=== PATIENT | male | born 1955 | race Hispanic/Latino ===

== ENCOUNTER 2023-07-12 18:25 | Emergency (ER) | payer OTHER, MEDICARE ==
[~2023-07-12] VITALS: Ht 175.3 cm; Wt 77.1 kg
[~2023-07-12 18:25] MED LIST: LACT10SO5 PO
[2023-07-12] MEDS ORDERED: KETOROLAC 15MG/ML VIAL (15MG/ML) IM ONE (20:00)
[2023-07-12] MEDS ORDERED: LIDOCAINE 4% ADH..PATCH TP ONE (20:00)
[2023-07-12 22:49] VITALS: BP 128/74; PULSE 88; RESP 20; O2SAT 99
[2023-07-12] MEDS ORDERED: KETO10TA2 PO (22:52)
[2023-07-12] MEDS ORDERED: LIDOP TP (22:52)
== END 2023-07-12 23:00 | disposition home or self-care (01) ==
LOC: EDH 18:25
DX: M51.26 Other intervertebral disc displacement, lumbar region (principal); J02.8 Acute pharyngitis due to other specified organisms; Z98.890 Other specified postprocedural states
CPT/HCPCS: 99285; 72131; 87880; 96372; J1885

== ENCOUNTER 2025-06-01 13:51 | Emergency (ER) | payer MEDICARE, MEDICAID ==
[~2025-06-01] VITALS: Ht 177.8 cm; Wt 85.7 kg
[~2025-06-01 13:51] MED LIST changes: +KETO10TA2 PO; +LACT-441 PO; -LACT10SO5 PO; +LIDOP TP
--- NOTE | 2025-06-01 13:58 | ERN ---
ED Note History of Present Illness Stated Complaint: RT KNEE PAIN, FALL Chief Complaint: Knee Injury/Swelling Time Seen by MD: 13:53 Dictation: PATIENT IS A 69-YEAR-OLD MALE COMPLAINING OF RIGHT KNEE PAIN STATUS POST FALL OFF LADDER. HE HAS BEEN AMBULATORY SINCE THE FALL TODAY. HE DOES HAVE A HISTORY OF PRIOR TOTAL KNEE REPLACEMENT SAME WI. PAIN IS 7/10 HE HAS NOT TAKEN ANYTHING PRIOR TO ARRIVAL FOR PAIN. NO HIP PAIN NO SHORTENING OR ROTATION OF LEG. Allergies: Coded Allergies: No Known Allergies (Unverified Allergy, Unknown, 01/28/22) Home Meds Active Scripts Ibuprofen (Ibuprofen 800 mg Tab) 800 Mg Tab, 800 MG PO Q8H PRN for fever or pain, #30 TAB 0 Refills Prov:CORNELL SUTTON [employer] 06/01/25 Lidocaine (Lidoderm Patch 5%) 5 % Patch, 1 PATCH TP DAILY for 7 Days, #7 ADH.PATCH Prov:EVELIN MELVIN MD 07/12/23 Ketorolac Tromethamine (Ketorolac Tromethamine) 10 Mg Tablet, 10 MG PO QID for 7 Days, #28 TAB Prov:EVELIN MELVIN MD 07/12/23 Lactulose (Lactulose) 10 Gm/15 Ml Solution, 10 GM PO DAILY for 7 Days, #15 ML Prov:PIPER SÁNCHEZ MD 01/28/22 Past Medical History Past Medical History: Other Additional Past Medical Hx: SEASONAL ALLERGIES, CHRONIC BACK PAIN Surgical History: Unknown Surgical History Other: RT KNEE Social History: Negative RN Note Reviewed/Agreed w/PFSH: Yes Review of System Dictation CONSTITUTIONAL: NEGATIVE EXCEPT FOR HPI HEAD/FACE: NEGATIVE EXCEPT FOR HPI EENT: NEGATIVE EXCEPT FOR HPI RESPIRATORY: NEGATIVE EXCEPT FOR HPI GASTROINTESTINAL/ABDOMINAL: NEGATIVE EXCEPT FOR HPI GENITOURINARY: NEGATIVE EXCEPT FOR HPI MUSCULOSKELETAL: NEGATIVE EXCEPT FOR HPI RIGHT KNEE PAIN INTEGUMENTARY: NEGATIVE EXCEPT FOR HPI NEUROLOGICAL/PSYCH: NEGATIVE EXCEPT FOR HPI HEMATOLOGIC/LYMPHATIC: NEGATIVE EXCEPT FOR HPI ALL SYSTEMS NEGATIVE, EXCEPT NOTED ABOVE. 13 POINT REVIEW OF SYSTEMS ASSESSED AND ALL NEGATIVE EXCEPT FOR ABOVE. Initial Vital Sign VS Vital Signs Date Time Temp Pulse Resp B/P (MAP) Pulse Ox O2 Delivery O2 Flow Rate FiO2 06/01/25 13:53 98.8 67 16 133/82 99 Room Air 0 06/01/25 14:52 21 Physical Exam Dictation VITAL SIGNS REVIEWED GENERAL APPEARANCE: ALERT, ORIENTED X 3, MODERATE ACUTE DISTRESS, WELL DEVELOPED, NOURISHED. HEAD AND FACE: NON-TRAUMATIC. EYES: PERRL, PINK CONJUNCTIVAS, EYELID NO TRAUMA, ANTERIOR CHAMBER WITH ARCUS SENILIS. EARS: PINNAS INTACT AND NO SIGNS OF TRAUMA OR ERYTHEMA EAR CANALS CLEAR AND NO DISCHARGE TM NO ERYTHEMA NOSE: NO DISCHARGE, NO BLEEDING. OROPHARYNX: MOUTH NORMAL, TONGUE PINK, PHARYNX CLEAR,NO ERYTHEMA, TONSILS NO EXUDATES, NO ABSCESSES NOTED, MUCOUS MEMBRANE MOIST NECK: SUPPLE, NON-TENDER, NO THYROMEGALY, NO MASSES, NO JVD, NO BRUITS BREAST:DEFERRED CHEST:NO TENDERNESS, NO CREPITUS, NO PARADOXICAL MOVEMENT, NO RETRACTIONS LUNGS:CLEAR, WELL-VENTILATED, SYMMETRIC, NO RALES, NO WHEEZING, NO RHONCHI, NO STRIDOR, GOOD BREATH SOUNDS BILATERALLY HEART: REGULAR RATE, REGULAR RHYTHM, NO MURMUR, NO GALLOPS VASCULAR: NO PERIPHERAL EDEMA, ABDOMEN: SOFT, POSITIVE BOWEL SOUNDS, NONDISTENDED, NO GUARDING, NONTENDER, NO REBOUND, NO MASSES NO HEPATOMEGALY, NO SPLENOMEGALY, NO CARRASCO'S SIGN, NO HERNIAS. RECTAL: DEFERRED GENITAL: DEFERRED NEUROLOGICAL: NORMAL SPEECH, MOTOR FUNCTION INTACT, SENSORY FUNCTION INTACT MUSCULOSKELETAL: NECK NONTENDER, FULL RANGE OF MOTION, BACK NONTENDER, FULL RANGE OF MOTION, EXTREMITIES: RIGHT KNEE PAIN TENDERNESS WITH RANGE OF MOTION. SKIN: COLOR PINK, DRY, NO TURGOR, NO RASH, NO LACERATIONS, NO ABRASIONS, NO CONTUSIONS. LYMPHATIC: DEFERRED Results (Laboratory/Radiology) Laboratory/Radiology FINDINGS: BONES: No acute fracture or aggressive appearing osseous lesion. JOINTS: Cemented right total knee arthroplasty is in near anatomic alignment. No knee joint effusion. SOFT TISSUES: The soft tissues are unremarkable. IMPRESSION: No acute osseous pathology evident. /[place] [facility] Reviewed?: Yes ED Course ED Course Orders Procedure Category Date Status Time Knee 3vws Rt RAD 06/01/25 Resulted 13:56 Hydrocodone/Apap PHA 06/01/25 Complete 5/325 ([place] 5/325mg) 14:00 Current Medications Medications (Trade) Dose Ordered Sig/Farhan Route PRN Reason Start Time Stop Time Status Last Admin Dose Admin Acetaminophen/ Hydrocodone Bitart (NORco 5/325MG) 1 tab ONCE ONCE PO 06/01/25 14:00 06/01/25 14:01 DC 06/01/25 14:50 Vital Signs Date Time Temp Pulse Resp B/P (MAP) Pulse Ox O2 Delivery O2 Flow Rate FiO2 06/01/25 14:52 98.6 65 16 130/80 98 Room Air* 0 21 06/01/25 13:53 98.8 67 16 133/82 99 Room Air 0 1500/knee x-ray negative and arthroplasties in place Medical Decision Making MDM Medical decision-making based on empiric treatment for knee pain status post fall and knee x-ray X-ray done shows arthroplasty in place and intact Patient has hydrocodone at home and told to continue. He will be prescribed ibuprofen for mild pain DX & DISP Disposition: Discharge Departure Impression: Primary Impression: Contusion of right knee, initial encounter Additional Impressions: History of arthroplasty of right knee, Fall Condition: Stable Scripts Ibuprofen (Ibuprofen 800 mg Tab) 800 Mg Tab 800 MG PO Q8H PRN for fever or pain, #30 TAB 0 Refills Prov: CORNELL SUTTON NP 06/01/25 Additional Instructions: Follow-up with primary care provider in 1 to 2 days. Take medications as directed here in the emergency room. Okay to continue home medications unless otherwise discussed during your visit in the emergency room today. Return to your nearest emergency room if symptoms worsen or if there is no improvement. Call 911 if you need immediate assistance. Take Tylenol or Motrin [id number] as needed and if no contraindications are present. Increase oral hydration. A wound culture or urine culture was ordered here in the emergency room department please follow-up with primary care provider and advise them to get repeat ports from our facility. If you had any Herber wrap/splints that were applied here, please do not remove them until you see your primary care or specialty. Cool compresses to right knee three to 4 times a day. Activity and diet as t olerated. Continue your hydrocodone at home for severe pain Take ibuprofen as needed for mild pain. Referrals: RHONDA CACERES MD (PCP) Time of Disposition: 15:03 I have reviewed the case, and I agree with, Diagnosis and Plan CORNELL SUTTON NP Jun 01, 2025 13:58 MAKENZIE HULL DO Jun 01, 2025 15:16
[2025-06-01] MEDS: HYDROcodone/APAP 5/325 1 TAB TABLET PO ONE (14:50)
[2025-06-01 14:52] VITALS: BP 130/80; PULSE 65; RESP 16; TEMP 98.6; O2SAT 98
--- NOTE | 2025-06-01 14:58 | HMCIMG ---
EXAM: CR right Knee, 3 View. CLINICAL HISTORY: RIGHT KNEE PAIN STATUS POST FALL. COMPARISON: None provided. FINDINGS: BONES: No acute fracture or aggressive appearing osseous lesion. JOINTS: Cemented right total knee arthroplasty is in near anatomic alignment. No knee joint effusion. SOFT TISSUES: The soft tissues are unremarkable. IMPRESSION: No acute osseous pathology evident. /[place]
[2025-06-01] MEDS ORDERED: IBUP-2077 PO (15:05)
== END 2025-06-01 15:15 | disposition home or self-care (01) ==
LOC: EDH 13:51
DX: S80.01XA Contusion of right knee, initial encounter (principal); Z96.651 Presence of right artificial knee joint; Z79.899 Other long term (current) drug therapy; W18.39XA Other fall on same level, initial encounter; Y93.89 Activity, other specified; Y92.89 Other specified places as the place of occurrence of the external cause; Y99.8 Other external cause status
CPT/HCPCS: 73562; 99283